=== PATIENT | male | born 1980 | race Caucasian/White ===

== ENCOUNTER 2019-10-08 13:58 | Emergency (ER) | payer BC, MEDICAID ==
[~2019-10-08] VITALS: Ht 180.3 cm; Wt 81.6 kg
[2019-10-08] MEDS ORDERED: LEVE500T9 PO (14:07)
[2019-10-08] MEDS ORDERED: GABA800T11 PO (14:07)
--- NOTE | 2019-10-08 14:15 | NUR ---
DR Rojas at the bedside for MSE.
[2019-10-08] MEDS ORDERED: LORAZEPAM 2 MG/1 ML VIAL ONE (14:27)
[2019-10-08] MEDS ORDERED: levETIRAcetam 250 MG TABLET ONE (14:27)
[2019-10-08] MEDS ORDERED: levETIRAcetam 250 MG TABLET PO ONE (14:30)
[2019-10-08] MEDS ORDERED: LORAZEPAM 2 MG/1 ML VIAL IV ONE (14:30)
[2019-10-08] MEDS ORDERED: IV NORMAL SALINE 1000 ML BAG IV ONE (14:30)
[2019-10-08 14:37] LABS: BASOPHILS % (AUTO) 0.4 % (0.0-2.0); HEMATOCRIT 46.5 % (36.7-47.1); LYMPHOCYTES # (AUTO) 0.7 K/uL (20.0-40.0); LYMPHOCYTES % (AUTO) 8.5 % (20.5-51.5); MEAN CORPUSCULAR HEMOGLOBIN 30.6 uug (23.8-33.4); MEAN CORPUSCULAR HGB CONC 35 g/dL (32.5-36.3); MEAN CORPUSCULAR VOLUME 88.8 fL (73.0-96.2); MONOCYTES # (AUTO) 0.4 K/uL (2.0-10.0); MONOCYTES % (AUTO) 5.1 % (0.0-11.0); NEUTROPHILS # (AUTO) 7.3 K/uL (1.8-8.9); PLATELET COUNT (AUTO) 202 K/uL (152-348); RED BLOOD CELL COUNT(AUTO) 5.23 MIL/uL (4.06-5.63); WHITE BLOOD COUNT (AUTO) 8.6 K/uL (3.6-10.2)
[2019-10-08 14:46] LABS: CARBON DIOXIDE 30 mmol/L (21-32); CHLORIDE 100 mmol/L (98-107); CREATININE 0.8 mg/dL (0.6-1.3); GLUCOSE 107 mg/dL (74-106); POTASSIUM 3.7 mmol/L (3.5-5.1); UREA NITROGEN, BLOOD 9 mg/dL (7-18)
[2019-10-08 15:01] LABS: ALANINE AMINOTRANSFERASE 26 U/L (16-63); ALKALINE PHOSPHATASE 95 U/L (50-136); ASPARTATE AMINOTRANSFERASE 16 U/L (15-37); BILIRUBIN,DIRECT 0.1 mg/dL (0.0-0.2); BILIRUBIN,TOTAL 0.5 mg/dL (0.2-1.0); TOTAL PROTEIN, SERUM 8.2 g/dL (6.4-8.2)
[2019-10-08 15:02] LABS: ACETAMINOPHEN < 2.0 ug/mL (10-30)
[2019-10-08 15:03] LABS: ETHANOL < 3 MG/DL (0-0)
[2019-10-08 15:26] LABS: *BILIRUBIN,URIN NEGATIVE (NEGATIVE); *BLOOD, URINE NEGATIVE (NEGATIVE); *CLARITY,URINE CLEAR (CLEAR); *COLOR,URINE YELLOW (YELLOW); *KETONES,URINE TRACE (NEGATIVE); LEUKOCYTE ESTERASE ,URINE NEGATIVE (NEGATIVE); NITRITE, URINE NEGATIVE (NEGATIVE); PH,URINE 7.5 (5.0-8.0); UGLUCOSE NEGATIVE (NEGATIVE)
[2019-10-08] MEDS ORDERED: DIAZEPAM 2 MG TABLET PO ONE (15:30)
[2019-10-08 15:31] LABS: BACTERIA,URINE NONE SEEN /HPF (NONE SEEN); RBC,URINE 0-3 /HPF (0-3); SQUAMOUS EPITHELIAL CELL,UR FEW /HPF (NONE SEEN); WBC,URINE 0-3 /HPF (0-3)
[2019-10-08 15:38] LABS: *AMPHETAMINE, URINE NEGATIVE (NEGATIVE); *BARBITURATE, URINE POSITIVE (NEGATIVE); *CANNABINOID, URINE POSITIVE (NEGATIVE); *COCCAINE, URINE NEGATIVE (NEGATIVE); *OPIATE, URINE POSITIVE (NEGATIVE); *PHENCYCLIDINE SCREEN,URINE NEGATIVE (NEGATIVE)
[2019-10-08] MEDS ORDERED: DIAZEPAM 2 MG TABLET ONE (15:38)
--- NOTE | 2019-10-08 15:55 | NUR ---
sam, social economist notified and here at the bedside for assisstance w/ placement for detox.
--- NOTE | 2019-10-08 16:50 | NUR ---
[employer] Offbearer Consultation: SW met with this patient, per consultation request from Dr. Rojas. Patient is a 39 year old male, alert, oriented x 4, cooperative. Patient states that he came to the ED today to obtain a medical clearance before getting admitted into a substance abuse program. Patient is originally from [place], and has been in [place] for 2-3 months. When patient initially came out to ID, he was living in a sober living in [place]. Currently patient has been living in a hotel. Patient has a history of polysubstance abuse. No SI or HI. Patient states he has been working with [facility] in [place], in order to enter the drug rehabilitation program. Patient provided this SW with contact name and number for [facility]. [facility] called [facility] and spoke with Aylin [phone]. Aylin stated that patient requires a medical clearance prior to admission, and requested patient's H & P and clinicals. CHAVA faxed this information to Aylin at [phone]. Aylin also stated that she would need to speak with the patient directly in order to complete patient's assessment for admission. [facility] coordinated for patient to speak with Aylin via telephone and complete his admission assessment. Dr. Rojas informed of discharge plans. Patient will be discharged to [facility] located at [address] [place], [place] [id number]. RADHA Floyd informed.
--- NOTE | 2019-10-08 18:36 | NUR ---
SPOKE TO VANESSA FROM [facility]. PT WILL BE PICKED UP BY [facility], DISCHARGE PAPERWORK PROVIDED.
--- NOTE | 2019-10-08 18:40 | NUR ---
IV removed. Catheter intact and site benign. Pressure and 4x4 gauze applied to site. No bleeding noted.
--- NOTE | 2019-10-08 19:13 | NUR ---
Patient discharged in stable conditon. Written and verbal after care instructions given. Patient verbalizes understanding of instructions. Pt left ER accompained by Camille Joel [facility] rep.
[2019-10-08 19:15] VITALS: BP 123/78
== END 2019-10-08 19:16 | disposition home or self-care (01) ==
LOC: ER 13:58
DX: F19.10 Other psychoactive substance abuse, uncomplicated (principal); R56.9 Unspecified convulsions; F11.10 Opioid abuse, uncomplicated; R11.2 Nausea with vomiting, unspecified; Z60.2 Problems related to living alone
CPT/HCPCS: 36415; 80048; 80076; 80307; 81000; 81001; 85025; 93005; 96361; 96374; 99284; G0480 ×2; G0481; J2060; A4663